=== PATIENT | male | born 1995 | race Caucasian/White ===

== ENCOUNTER 2021-03-22 15:25 | Emergency (ER) | payer MEDICAID ==
[~2021-03-22] VITALS: Ht 154.9 cm; Wt 70.1 kg
[2021-03-22] MEDS ORDERED: FAMOTIDINE 20MG TABLET PO SCH (16:45)
[2021-03-22] MEDS ORDERED: FAMO-135 MT (17:57)
[2021-03-22 18:00] VITALS: BP 122/72
== END 2021-03-22 19:01 | disposition home or self-care (01) ==
LOC: ER 15:25
DX: R10.13 Epigastric pain (principal)
CPT/HCPCS: 99283

== ENCOUNTER 2021-03-23 03:51 | Day surgery (SDC) | payer MEDICAID ==
[~2021-03-23] VITALS: Ht 160 cm; Wt 60.0 kg
[~2021-03-23 03:51] MED LIST: FAMO-135 MT
[2021-03-23 04:58] LABS: BASOPHILS % 0.3 % (0.0-2.0); EOSINOPHILS % 0.4 % (0.0-5.0); HEMATOCRIT. 44.6 % (42.0-52.0); HEMOGLOBIN. 16.1 g/dL (14.0-18.0); LYMPHOCYTES % 12.5 % (20.0-50.0); MEAN CORPUSCULAR HEMOGLOBIN 31.8 pg (28.0-32.0); MEAN CORPUSCULAR VOLUME 87.9 fL (80.0-94.0); MEAN PLATELET VOLUME 8.7 fl (7.4-10.4); MONOCYTES % 7.3 % (2.0-8.0); NEUTROPHILS % 79.5 % (40.0-76.0); PLATELET 167 x1000/uL (130-400); RED BLOOD CELL COUNT 5.07 mill/uL (4.7-6.1); RED CELL DISTRIBUTION WIDTH 13.1 % (11.6-14.6)
[2021-03-23 05:05] LABS: CLARITY URINE CLEAR (CLEAR); COLOR URINE DARK YELLOW (YELLOW); KETONES URINE TRACE (NEGATIVE); LEUKOCYTE ESTERASE URINE TRACE (NEGATIVE); NITRITE URINE NEGATIVE (NEGATIVE); OCCULT BLOOD URINE NEGATIVE (NEGATIVE); PH URINE 5.5 (4.5-8.0); PROTEIN URINE TRACE (NEGATIVE); SPECIFIC GRAVITY URINE 1.036 (1.005-1.030)
[2021-03-23 05:05] LABS: CHLORIDE 108 mEq/L (98-107)
[2021-03-23 05:09] LABS: ETHANOL BLOOD < 10 mg/dL
[2021-03-23 05:15] LABS: *AMPHETAMINES SCREEN URINE NEGATIVE (NEGATIVE); *BARBITURATES SCREEN URINE NEGATIVE (NEGATIVE); *BENZODIAZEPINES SCREEN URINE NEGATIVE (NEGATIVE); *COCAINE SCREEN URINE NEGATIVE (NEGATIVE); METHADONE URINE SCREEN NEGATIVE (NEGATIVE)
[2021-03-23 05:16] LABS: CANNABINOID URINE SCREEN NEGATIVE (NEGATIVE); OPIATES URINE SCREEN NEGATIVE (NEGATIVE); PHENCYCLIDINE URINE SCREEN NEGATIVE (NEGATIVE)
[2021-03-23] MEDS ORDERED: FAMOTIDINE 20MG/2ML VIAL IV STA (06:32)
[2021-03-23] MEDS ORDERED: KETOROLAC 30MG/ML VIAL IV STA (06:32)
[2021-03-23] MEDS ORDERED: MAGNESIUM/ALUMINUM HYDROXIDE/SIMETHICONE 30ML UDC PO STA (06:32)
[2021-03-23] MEDS ORDERED: SODIUM CHLORIDE 0.9% 1,000 ML IV ONE (06:45)
[2021-03-23] MEDS ORDERED: IOHEXOL-300 100 ML BOTTLE ONE (07:01)
[2021-03-23] MEDS ORDERED: PIPERACILLIN/TAZ 3.375G PREMIX 50 ML IV ONE (07:45)
[2021-03-23 09:03] LABS: PARTIAL THROMBOPLASTIN TIME 26.8 sec (23.4-31.0); PROTHROMBIN TIME 10.9 sec (9.6-11.0)
[2021-03-23] MEDS ORDERED: SKIN ADHESIVE 0.7 GM EA TOP ONE (10:11)
[2021-03-23] MEDS ORDERED: BUPIVACAINE HCL/PF 0.5% (5MG/ML) 10ML ONE (10:11)
[2021-03-23 12:10] VITALS: BP 108/53
[2021-03-23] MEDS ORDERED: ACETAMINOPHEN 500MG TABLET ONE (13:14)
[2021-03-23] MEDS ORDERED: STERILE WATER FOR INJECTION 10ML VIAL ONE (13:24)
[2021-03-23] MEDS ORDERED: METOCLOPRAMIDE HCL 10MG/2ML VIAL ONE (13:24)
[2021-03-23] MEDS ORDERED: ONDANSETRON HCL 4MG/2ML INJ ONE (13:24)
[2021-03-23] MEDS ORDERED: VECURONIUM BROMIDE 10 MG/VIAL IV ONE (13:25)
[2021-03-23] MEDS ORDERED: LIDOCAINE HCL 1% 20ML VIAL (Pyxis) INJ ONE (13:25)
[2021-03-23] MEDS ORDERED: CEFAZOLIN SODIUM 1000MG/VIAL ONE (13:25)
[2021-03-23] MEDS ORDERED: SUCCINYLCHOLINE CHLORIDE 200MG/10ML IV ONE (13:25)
[2021-03-23] MEDS ORDERED: MIDAZOLAM HCL 2 MG/2 ML VIAL ONE (13:27)
[2021-03-23] MEDS ORDERED: PROPOFOL 200MG/20ML VIAL IV ONE (13:27)
[2021-03-23] MEDS ORDERED: KETOROLAC 30MG/ML VIAL ONE (13:40)
[2021-03-23] MEDS ORDERED: FENTANYL CITRATE/PF 50MCG/ML 2ML VIAL ONE (13:40)
[2021-03-23] MEDS ORDERED: HYDROMORPHONE HCL/PF 2MG/ML CPJ IV PRN (14:00)
[2021-03-23] MEDS ORDERED: GLYCOPYRROLATE 0.2 MG/ML 2ML VIAL ONE (14:06)
[2021-03-23] MEDS ORDERED: NEOSTIGMINE METHYLSULFATE 1MG/ML 10 ML VIAL ONE (14:06)
== END 2021-03-23 17:30 | disposition home or self-care (01) ==
LOC: ER 03:51 → ENRESERV 13:45 → OR 14:20 → CANBEDREQ 21:10
PROVIDERS: ATTEND Surgery
DX: K36 Other appendicitis (principal); K76.0 Fatty (change of) liver, not elsewhere classified; Z79.899 Other long term (current) drug therapy; Z98.890 Other specified postprocedural states
CPT/HCPCS: 36415; 44970; 74177; 76705; 80053; 80305; 80320; 81003; 83690; 85025; 85610; 85730; 86850; 86900; 86901; 87426; 88304; 96361; 96365; 96366; 96375; 99285; A4216; J0330; J1885; J2250; J2405; J2543; J2704; J2710; J2765; J3010; J3490; J7030; Q9967; J0690; G0480